=== PATIENT | female | born 1960 | race Caucasian/White ===

== ENCOUNTER 2023-03-07 12:22 | Outpatient (REF) | payer OTHER, SELFPAY ==
--- NOTE | ~2023-03-07 | XR_ITS ---
EXAMINATION: XR CERVICAL SPINE CLINICAL INFORMATION: Pain. COMPARISON: None available. TECHNIQUE: 7 images including oblique views. FINDINGS: Normal lordosis is maintained. There is degenerative change at C5-C6 and C6-C7 with loss of disc height and both anterior and posterior spurring. The foraminal oblique images do demonstrate foraminal encroachment at C5-C6 and C6-C7 greater than C4-C5 on the right. On the left imaging is suboptimal but I suspect foraminal encroachment at C3-C4, C4-C5, C5-C6 and C6-C7 as well. Hypertrophic changes in the articulating facets is noted bilaterally. XR/XR cervical spine 5V IMPRESSION: Degenerative changes appear moderate here with areas of bony foraminal encroachment. If further evaluation is warranted consider MR.
--- NOTE | ~2023-03-07 | XR_ITS ---
EXAMINATION: XR THORACOLUMBAR SPINE CLINICAL INFORMATION: Osteoarthritis. COMPARISON: Lateral chest image from 09/17/2018. TECHNIQUE: 3 views. FINDINGS: No listhesis or compression injury. There is some evidence of early degeneration throughout the thoracic spine, which is mild. Some mild loss of disc height with spurring. Scoliosis convex left apex at D9 and convex right apex at D5. XR/XR thoracic spine 2V IMPRESSION: Mild degenerative changes. No listhesis or compression injury. Mild scoliosis.
== END 2023-03-07 12:23 | disposition home or self-care (01) ==
LOC: HO.XRAY 12:22
PROVIDERS: PCP Family Medicine; Visit Provider Registered Nurse
DX: M47.22 Other spondylosis with radiculopathy, cervical region (principal); M62.838 Other muscle spasm
CPT/HCPCS: 72050; 72070

== ENCOUNTER 2023-04-10 14:48 | Outpatient (REF) | payer OTHER, SELFPAY ==
[2023-04-10 17:21] LABS: Alanine Aminotransferase 20 U/L (0-31); Albumin Level 4.3 g/dL (3.5-5.0); Alkaline Phosphatase 129 U/L (39-117); Anion Gap 15 (12-20); Aspartate Amino Transferase 15 U/L (5-31); Bilirubin Direct 0.1 mg/dL (0.0-0.5); Bilirubin Total 0.3 mg/dL (0.0-1.0); Blood Urea Nitrogen 10 mg/dL (9-16); Calcium 9.7 mg/dL (8.4-10.2); Carbon Dioxide 22 mmol/L (22-29); Chloride 104 mmol/L (96-108); Cholesterol 179 mg/dL (<200); Estimated Glomerular Filt Rate > 60; Glucose Random 111 mg/dL (60-115); HDL Cholesterol 39 mg/dL (>40); LDL Cholesterol Calculated 87 mg/dL (<100); Potassium 4.1 mmol/L (3.3-5.1); Sodium 137 mmol/L (135-145); Total Protein 7.4 g/dL (6.5-8.0); Triglycerides 268 mg/dL (<150)
[2023-04-11 04:25] LABS: HIV AB/AG Nonreactive (Nonreactive); HIV Num 1 0.08 S/CO (0.00-0.99); ~HepC Num1 4.28 S/CO (0.00-0.79); ~Hepatitis C Antibody Reactive (Nonreactive)
[2023-04-13 23:38] LABS: VITAMIN D (1,25 OH) D3 30 pg/mL; Vit D (1,25-Dihydroxy) Total 47 pg/mL (18-72); Vitamin D (1,25 OH) D2 17 pg/mL
== END 2023-04-10 14:49 | disposition home or self-care (01) ==
LOC: HO.HHCL 14:48
PROVIDERS: Visit Provider Family Medicine
DX: E11.69 Type 2 diabetes mellitus with other specified complication (principal); E78.5 Hyperlipidemia, unspecified; Z11.3 Encounter for screening for infections with a predominantly sexual mode of transmission; Z13.21 Encounter for screening for nutritional disorder
CPT/HCPCS: 36415; 80048; 80061; 80076; 82652; 86803; 87389

== ENCOUNTER 2023-07-26 11:08 | Outpatient (REF) | payer OTHER, SELFPAY ==
[2023-07-26 13:39] LABS: Estimated Average Glucose 154 mg/dL
[2023-07-26 13:46] LABS: Anion Gap 14 (12-20); Blood Urea Nitrogen 16 mg/dL (9-16); Calcium 9.6 mg/dL (8.4-10.2); Carbon Dioxide 21 mmol/L (22-29); Chloride 106 mmol/L (96-108); Estimated Glomerular Filt Rate > 60; Glucose Random 152 mg/dL (60-115); Sodium 137 mmol/L (135-145)
[2023-07-29 14:29] LABS: HCV Log PCR <1.18 NOT DETECTED Log IU/mL (NOT DETECTED); HepC Viral Load <15 NOT DETECTED IU/mL (NOT DETECTED)
[2023-08-02 06:33] LABS: HPV mRNA E6/E7 rflx Not Detected (Not Detected)
== END 2023-07-26 11:09 | disposition home or self-care (01) ==
LOC: HO.HHCL 11:08
PROVIDERS: Visit Provider Family Medicine
DX: E11.69 Type 2 diabetes mellitus with other specified complication (principal); R76.8 Other specified abnormal immunological findings in serum
CPT/HCPCS: 36415; 80048; 83036; 87522; 87624; 88142

== ENCOUNTER 2024-12-16 18:07 | Outpatient (REF) | payer OTHER, SELFPAY ==
--- OUTSIDE RECORDS SUMMARY | 2024-12-16 18:20 | XMS_ITS | Encounter Summary ---
Author Organization [employer] Address [address] [facility] [address] [place] [address] Care Team Providers Care Parking Meter Collector Name Role Phone Fabby Hutchison MD Primary Care Provider +- [phone] Anne Lopez PharmD Unavailable [phone]- [phone] Reason for Visit * Reason Comments Med Refill Encounter Details Date Type Department Care Team ([facility] st Contact Info) Description 09/23/2023 Refill [facility] [address] [place], [place] [phone] Fabby Hutchison MD [address] [place], [place] [phone] Neck pain Social History Tobacco Use Types Packs/Day Years Used Date Smoking Tobacco: Every Day Cigarettes Smokeless Tobacco: Current Depression Answer Date Recorded Patient Health Questionnaire-9 Score 10 01/30/2023 Housing Stability Answer Date Recorded What is your housing situation today? I have sonja cordova 04/15/[address] you li ve. Do you have problems with any of the following? None of the above 04/15/2023 Food Insecurity Answer Date Recorded Within the past 12 months, y ou worried that your food would run out before you got money to buy more: Never True 04/15/2023 Within the past 12 months,th e food you bought just didn't last and you didn't have enough money to get more: Never True Transportation Answer Date Recorded In the past 12 months, has l ack of transportation kept you from medical appts, meetings, work or from getting things needed for daily living? No 04/15/2023 Utilities Answer Date Recorded In the past 12 months, has t he electric, gas, oil or water company threatened to shut off services in your home? No 04/15/2023 Depression Answer Date Recorded Patient Health Questionnaire-2 Score 4 01/30/2023 Comments Unknown Sex and Gender Information Value Date Recorded Sex Assigned at Female 04/30/2022 10:18 AM EDT Legal Sex Female 10:18 AM EDT Gender Identity Female 09/16/2024 3:40 PM EDT Sexual Orientation Straight 09/16/2024 3: 40 PM EDT documented as of this encounter Plan of Treatment Upcoming Encounters Date Type Department Care Team (Late st Contact Info) Description 01/07/2025 3:00 PM EDT Clinical Support [facility] CHC MED & PEDS [address] [place], [place] [phone] Penny Back, JOHN [address] [place] [address] 01/28/2025 9:45 AM EDT Office Visit [facility] MEDICINE [address] [place] [address] Fabby Hutchison MD [address] [place] [address] documented as of this encounter Goals Goal Patient Goal Type Associated Problems Recent Progress Patient-Stated? Author Blood Pressure < 140/90 Blood Pressure 144/86(2023 11:08 AM EDT) No Anne Vasquez, PharmD Smoking cessation General No Anne Vasquez, PharmD Note: Consider a goal of a quit date documented as of this encounter Visit Diagnoses Diagnosis Neck pain Cervicalgia documented in this encounter Additional Health Concerns Assessment Noted Time PHQ-9 Depression Total Score: 10 023 2:54 PM EDT documented as of this encounter Care Teams Parking Meter Collector Relationship Specialty Start Date End Date Fabby Hutchison MD [address] [place] [id number] PCP - General Family Medicine 07/01/18 Anne Lopez, PharmD [address] [place] [address] Pharmacist Internal Medicine 06/19/22 [facility] 06/20/22 documented as of this encounter
[2024-12-21 12:02] LABS: Benzoylecgonine 171
== END 2024-12-16 18:08 | disposition home or self-care (01) ==
LOC: HO.CHCLNP 18:07
PROVIDERS: Visit Provider Family Medicine
DX: Z79.891 Long term (current) use of opiate analgesic (principal)
CPT/HCPCS: 36415; 80353

== ENCOUNTER 2025-01-19 09:28 | Outpatient (REF) | payer OTHER, SELFPAY ==
--- OUTSIDE RECORDS SUMMARY | 2025-01-19 10:03 | XMS_ITS | Encounter Summary ---
Author Organization [employer] Address [address] [facility] 7t [place] [address] Care Team Providers Care Mine Patrol Name Role Phone Fbaby Hutchison MD Primary Care Provider +- [phone] Anne Lopez PharmD Unavailable [phone]- [phone] Reason for Visit * Reason Comments Med Refill Encounter Details Date Type Department Care Team ([facility] st Contact Info) Description 09/23/2023 Refill [facility] MED & PEDS [address] [place], [place] [phone] Fabby Hutchison MD [address] [place], [place] [phone] Neck pain Social History Tobacco Use Types [...] Care Team (Late st Contact Info) Description 01/28/2025 9:45 AM EDT Office Visit [facility] MEDICINE [address] [place] [address] Fabby Hutchison MD [address] [place] [address] 02/10/2025 10:00 AM EDT Clinical Support [facility] CHC MED & PEDS [address] [place], [place] [phone] Penny Back RN [address] [place] [address] documented as of this encounter Goals Goal [...] documented as of this encounter Care Teams Mine Patrol Relationship Specialty Start Date End Date Fabby Hutchison MD [address] [place] [id number] PCP - General Family Medicine 07/01/18 Anne Lopez, PharmD [address] [place] [address] Pharmacist Internal Medicine 06/19/22 [facility] 06/20/22 documented as of this encounter
== END 2025-01-19 09:29 | disposition home or self-care (01) ==
LOC: HO.MAMMO 09:28
PROVIDERS: PCP Family Medicine; Visit Provider Family Medicine
DX: Z13.89 Encounter for screening for other disorder (principal)

== ENCOUNTER 2025-01-28 11:15 | Outpatient (REF) | payer OTHER, SELFPAY ==
--- OUTSIDE RECORDS SUMMARY | 2025-01-28 11:17 | XMS_ITS | Encounter Summary ---
Author Organization [employer] Address [address] [facility] [address] [place] [address] Care Team Providers Care Supervisor Reclamation Name Role Phone Fabby Hutchison MD Primary Care Provider +- [phone] Anne Lopez PharmD Unavailable [phone]- [phone] Reason for Visit * Reason Comments Med Refill Encounter Details Date Type Department Care Team ([facility] st Contact Info) Description 09/23/2023 Refill [facility] MED & PEDS [address] [place], [place] [phone] Fabby Hutchison MD [address] [place], [place] [phone] Neck pain Social History Tobacco Use Types [...] Care Team (Late st Contact Info) Description 02/10/2025 10:00 AM EDT Clinical Support [facility] CHC MED & PEDS [address] [place] [address] Penny Back, RN [address] [place] [address] documented as of this encounter Goals Goal Patient Goal Type Associated Problems Recent Progress Patient-Stated? Author Blood Pressure < 140/90 Blood Pressure 124/70(2024 10:25 AM EDT) No Anne Vasquez, PharmD Smoking cessation General No Anne Vasquez PharmD Note: Consider a goal of a quit date documented as of this encounter Visit Diagnoses Diagnosis Neck pain Cervicalgia documented in this encounter Additional Health Concerns Assessment Noted Time PHQ-9 Depression Total Score: 10 023 2:54 PM EDT documented as of this encounter Care Teams Supervisor Reclamation Relationship Specialty Start Date End Date Fabby Hutchison MD [address] [place] [address] PCP - General Family Medicine 07/01/18 Anne Lopez, PharmD [address] [place] [phone] Pharmacist Internal Medicine 06/19/22 [facility] 06/20/22 documented as of this encounter
[2025-01-28 13:14] LABS: MANUAL DIFF FLAG NO
[2025-01-28 13:26] LABS: Hematocrit 44.8 % (37.0-47.0); Hemoglobin 15.0 g/dl (12.0-16.0); Imm Gran Abs Auto 0.08 X10*3/uL (0.00-0.03); Imm Gran Pct Auto 0.5 % (0.0-0.4); Lymphocytes Absolute Auto 3.3 X10*3/uL (1.2-4.9); Mean Corpuscular HGB Conc 33.5 g/dl (31.0-35.0); Mean Corpuscular Hemoglobin 29.9 pg (27.0-33.0); Mean Corpuscular Volume 89.4 fL (80.0-98.0); NRBC Abs Auto 0.000 X10*3/uL (0.0-0.012); NRBC Pct Auto 0.0 /100WBC (0.0-0.2); Platelet Count 443 X10*3/uL (160-400); Red Blood Count 5.01 X10*6/uL (4.20-5.50); White Blood Count 15.4 X10*3/uL (4.8-10.8)
[2025-01-28 13:33] LABS: Hemoglobin A1C 455.1998 umol/L; Total Hemoglobin (HGBA1C) 3957.4772 umol/L
[2025-01-28 14:18] LABS: Alanine Aminotransferase 18 U/L (0-31); Albumin Level 4.4 g/dL (3.5-5.0); Alkaline Phosphatase 142 U/L (39-117); Anion Gap 13 (12-20); Aspartate Amino Transferase 20 U/L (5-31); Blood Urea Nitrogen 12 mg/dL (9-16); Calcium 9.2 mg/dL (8.4-10.2); Carbon Dioxide 22 mmol/L (22-29); Chloride 104 mmol/L (96-108); Cholesterol 178 mg/dL (<200); Estimated Glomerular Filt Rate > 60; HDL Cholesterol 38 mg/dL (>40); Potassium 4.3 mmol/L (3.3-5.1); Sodium 135 mmol/L (135-145); Total Protein 7.5 g/dL (6.5-8.0); Triglycerides 214 mg/dL (<150)
== END 2025-01-28 11:16 | disposition home or self-care (01) ==
LOC: HO.HHCL 11:15
PROVIDERS: PCP Family Medicine; Visit Provider Family Medicine
DX: I10 Essential (primary) hypertension (principal); E11.69 Type 2 diabetes mellitus with other specified complication; D75.1 Secondary polycythemia; E78.5 Hyperlipidemia, unspecified; R79.89 Other specified abnormal findings of blood chemistry
CPT/HCPCS: 36415; 80048; 80061; 80076; 83036; 84443; 85025